=== PATIENT | female | born 1990 | race Caucasian/White ===

== ENCOUNTER 2020-01-31 21:54 | Emergency (ER) | payer MEDICAID, OTHER ==
[~2020-01-31] VITALS: Ht 175.3 cm; Wt 75.0 kg
[2020-01-31] MEDS ORDERED: MORPHINE SULFATE 4 MG/ML, 1ML IVPush PRN (22:30)
[2020-01-31 22:50] LABS: ANION GAP 4 mmol/L (5-15); CHLORIDE 111 mmol/L (98-107); CREATININE 1.02 mg/dL (0.55-1.02)
[2020-01-31] MEDS: ONDANSETRON 2MG/ML, 2ML IVPush ONE ×2 (22:50→23:00)
[2020-01-31] MEDS ORDERED: ONDANSETRON 2MG/ML, 2ML ONE (22:50)
[2020-01-31] MEDS ORDERED: MORPHINE SULFATE 4 MG/ML, 1ML ONE (22:50)
[2020-01-31 22:51] LABS: ALANINE AMINOTRANSFERASE 14 U/L (12-78); ALBUMIN 3.7 g/dL (3.4-5.0)
[2020-01-31 22:55] LABS: ALKALINE PHOSPHATASE 47 U/L (45-117); BILIRUBIN,TOTAL 0.3 mg/dL (0.2-1.0); TOTAL PROTEIN 7.7 g/dL (6.4-8.2)
--- NOTE | 2020-01-31 22:58 | NUR ---
PT IN RESTROOM TO ATTEMPT UA. PELVIC SET UP IN ROOM.
--- NOTE | 2020-01-31 22:59 | NUR ---
PT STATES AFTER HAVING SEX SHE STARTED HAVING BAD ABDOMINAL PAIN AND PT HAS AN IUD IN AND IS WORRIED ABOUT IT BEING MISPLACCED. PT PROVIDED UA SAMPLE, AND MEDICATED PER JULIANER Addendum: 01/31/20 at 2302 by RIELY PT REFUSING PAIN MEDS AND ZOFRAN AT THIS TIME
[2020-01-31 23:14] LABS: BASOPHILS % (AUTO) 0 % (0-1); EOSINOPHILS % (AUTO) 3 % (1-7); LYMPHOCYTES % (AUTO) 29 % (22-44); MEAN CORPUSCULAR HEMOGLOBIN 30.2 pg (27.0-34.8); MEAN CORPUSCULAR HGB CONC 33.5 g/dL (32.4-35.8); MEAN PLATELET VOLUME 8.7 fL (7.4-10.4); MONOCYTES % (AUTO) 6 % (2-9); NEUTROPHILS % (AUTO) 62 % (42-75); PLATELET COUNT 312 x10^3/uL (130-400); RED BLOOD COUNT 4.45 x10^6/uL (3.82-5.3); RED CELL DISTRIBUTION WIDTH 12.8 % (9.6-15.2)
[2020-01-31 23:15] LABS: MD NO
[2020-01-31 23:21] LABS: MICROSCOPIC NOT IND
[2020-01-31] MEDS ORDERED: KETOROLAC 30 MG/1 ML ONE (23:26)
--- NOTE | 2020-01-31 23:27 | NUR ---
PT STILL AT ULTRASOUND, UPDATED ON PT REFUSAL OF MORPHINE, NOEW ORDER RECIEVED. WILL ASSESS AND ADMIN WHEN PT RETURNS
[2020-01-31] MEDS ORDERED: KETOROLAC 30 MG/1 ML IVPush ONE (23:30)
--- NOTE | 2020-02-01 00:05 | NUR ---
AT BEDSIDE FOR PELVIC.
--- NOTE | 2020-02-01 00:09 | NUR ---
THIS RN IN WITH DR. MAYS FOR PELVIC EXAM. AFTER EXAM DR. MAYS DISCUSSED PLAN FOR D/C WITH PT.
[2020-02-01 00:10] VITALS: BP 116/69
== END 2020-02-01 00:32 | disposition home or self-care (01) ==
LOC: ED 02-01
DX: R10.2 Pelvic and perineal pain (principal)
CPT/HCPCS: 36415; 76830; 80053; 81003; 83690; 84703; 85025; 96374; 99284; J1885; J2405; J2270

== ENCOUNTER 2020-02-24 15:12 | Emergency (ER) | payer MEDICAID ==
[~2020-02-24] VITALS: Ht 175.3 cm; Wt 92.0 kg
[2020-02-24 17:01] VITALS: BP 120/86
== END 2020-02-24 17:02 ==
LOC: ED 15:49
DX: U07.1 COVID-19 (principal); R07.89 Other chest pain; J18.1 Lobar pneumonia, unspecified organism
CPT/HCPCS: 71045; 87635; 93005; 99285